=== PATIENT | male | born 1980 | race Caucasian/White ===

== ENCOUNTER 2016-09-11 12:56 | Inpatient (IN) | payer OTHER ==
[~2016-09-11] VITALS: Ht 185.4 cm; Wt 94.3 kg
--- NOTE | 2016-09-11 12:56 | NUR ---
BBRA FROM [facility], PER PT, "I FEEL ANXIOUS", ALERT, DELAYED RESPONSE. PLACED ON MONITOR. AWAITING MD ORDER.
--- NOTE | 2016-09-11 12:58 | NUR ---
DR VIERA AT BEDSIDE FOR EVAL
[2016-09-11] MEDS ORDERED: IV NS 0.9% 250 ML IV ONE (13:03)
[2016-09-11] MEDS ORDERED: CT SWABBABLE VALVE TRANS SET 1 EA INFUS.SET MC ONE (13:03)
[2016-09-11] MEDS ORDERED: IOHEXOL-350 100 ML VIAL IV ONE (13:04)
--- NOTE | 2016-09-11 13:04 | NUR ---
called code stroke
--- NOTE | 2016-09-11 13:04 | NUR ---
CALLED [facility] TELE STROKE LINE. EXPECTING CALL BACK FROM DR MOREAU
--- NOTE | 2016-09-11 13:08 | NUR ---
RAC #20 IV ACCESS. BLOOD SAMPLE COLLECTED SENT TO LAB
--- NOTE | 2016-09-11 13:09 | NUR ---
DR MOREAU CALLED, TRANSFERRED CALL TO DR VIERA
--- NOTE | 2016-09-11 13:09 | NUR ---
PATIENT TAKEN TO CT VIA STRETCHER
[2016-09-11 13:12] LABS: BASOPHILS # (AUTO) 0.1 /CMM (0.0-0.2); BASOPHILS % (AUTO) 0.8 % (0.0-2.0); EOSINOPHILS # (AUTO) 0.3 /CMM (0.0-0.7); EOSINOPHILS % (AUTO) 3.8 % (0.0-6.0); HEMATOCRIT 51 % (39-51); HEMOGLOBIN 17.1 g/dL (13.5-17.5); LYMPHOCYTES # (AUTO) 2.3 /CMM (0.8-4.8); LYMPHOCYTES % (AUTO) 29.9 % (20.0-44.0); MEAN CORPUSCULAR HEMOGLOBIN 27 PG (26.0-33.0); MEAN CORPUSCULAR HGB CONC 33 g/dl (31.0-36.0); MEAN CORPUSCULAR VOLUME 80 fL (80-96); MONOCYTES # (AUTO) 0.8 /CMM (0.1-1.30); MONOCYTES % (AUTO) 10.4 % (2.0-12.0); NEUTROPHILS # (AUTO) 4.2 /CMM (1.8-8.9); NEUTROPHILS % (AUTO) 55.1 % (43.0-81.0); PLATELET COUNT (AUTO) 371 /CMM (150-450); RDW COEFFICIENT OF VARIATION 13.3 (11.5-15.0); RED BLOOD CELL COUNT(AUTO) 6.38 MIL/uL (4.5-6.0); WHITE BLOOD COUNT (AUTO) 7.7 K/uL (4.3-11.0)
--- NOTE | 2016-09-11 13:18 | NUR ---
PATIENT RETURN FROM CT
--- NOTE | 2016-09-11 13:19 | NUR ---
TELE NEUROLOGY ACTIVATED
[2016-09-11 13:22] LABS: CALCIUM, SERUM 9.4 mg/dL (8.5-10.1); CARBON DIOXIDE 23 mmol/L (21-32); CHLORIDE 102 mmol/L (98-107); CREATININE 1.1 mg/dL (0.6-1.3); GLUCOSE 105 mg/dL (74-106); POTASSIUM 3.4 mmol/L (3.5-5.1); SODIUM SERUM 138 mmol/L (136-145); UREA NITROGEN, BLOOD 18 mg/dL (7-18)
[2016-09-11] MEDS ORDERED: IV NS 0.9% 500 ML BAG IV ONE (13:30)
--- NOTE | 2016-09-11 13:30 | NUR ---
SURVEY RODMAN AT BEDSIDE
[2016-09-11 13:31] LABS: INR 0.98 (0.87-1.13); PROTHROMBIN TIME 10.5 SECS (9.5-12.7)
[2016-09-11 13:32] LABS: TROPONIN I < 0.017 ng/mL (0.00-0.056)
--- NOTE | 2016-09-11 13:44 | NUR ---
PAGED DR THRASHER FOR PANEL ADMISSION
--- NOTE | 2016-09-11 13:45 | NUR ---
CALLED NURSING GI TECH FOR PANEL ADMISSION
[2016-09-11] MEDS ORDERED: LOSA100T15 PO (13:47)
[2016-09-11] MEDS ORDERED: AMLO5TAB4 PO (13:47)
[2016-09-11] MEDS ORDERED: HYDROCODONE/APAP 5/325MG 1 EACH TABLET PO PRN ×2 (14:00→14:30)
[2016-09-11] MEDS ORDERED: ZOLPIDEM TARTRATE 5 MG TABLET PO PRN (14:00)
[2016-09-11] MEDS ORDERED: ONDANSETRON HCL/PF 4 MG/2 ML VIAL IVP PRN ×2 (14:00→14:30)
[2016-09-11] MEDS ORDERED: ASPIRIN 325 MG TABLET PO ONE (14:00)
[2016-09-11] MEDS ORDERED: MAGNESIUM HYDROXIDE 30 ML UDC PO PRN ×2 (14:00→14:30)
[2016-09-11] MEDS ORDERED: Z GUARD REMEDY 2 OZ OINT TP PRN ×2 (14:00→14:30)
[2016-09-11] MEDS ORDERED: MAG HYDROX/AL HYDROX/SIMETH 30 ML UDC PO PRN ×2 (14:00→14:30)
[2016-09-11] MEDS ORDERED: ACETAMINOPHEN 325 MG TABLET PO PRN ×2 (14:00→14:30)
[2016-09-11] MEDS ORDERED: ENOXAPARIN SODIUM 40 MG/0.4 ML DISP.SYRIN SQ SCH (14:00)
[2016-09-11] MEDS ORDERED: ASPIRIN 325 MG TABLET ONE (14:08)
--- NOTE | 2016-09-11 14:14 | NUR ---
GAVE REPORT TO MENDY DILLARD ADMITTING DX PHYLLIS THRASHER TRANSFER VIA ACLS PROTOCOL. ROOM 119-2
[2016-09-11 14:30] VITALS: BP 128/89
--- NOTE | 2016-09-11 14:30 | NUR ---
singing telegram performerinternational logistics analyst notes Admitted a 36 years old male patient from ER who came in with the diagnosis of TIA. Accompanied by and ER nurse via gurney. No complaint of pain or discomfort noted, nor chest pain. On room air and tolerated well. Alert and oriented x 4, verbally responsive and able to make needs known. Stroke education rendered. On tele monitor SR heart rate of 97. Ambulatory skin intact. Informed Dr. Bae regarding admission and admission orders and diet and made aware. [place] offered. Kept patient clean and comfortable in bed, call light with in patient reach, will continue to monitor accordingly.
[2016-09-11] MEDS: ENOXAPARIN SODIUM 40 MG/0.4 ML DISP.SYRIN SQ SCH (15:25)
[2016-09-11] MEDS: LOSARTAN POTASSIUM 50 MG TABLET PO SCH (15:28)
[2016-09-11 16:00] VITALS: BP 128/89
--- NOTE | 2016-09-11 19:10 | NUR ---
telemetry technician closing notes All needs provided, attended, and anticipated. kept patient clean and comfortable in bed, call light with in patient reach. Endorsed to next fit Rn to continue care. SR on tele monitor heart rate of 90.
--- NOTE | 2016-09-11 19:41 | NUR ---
CLINICAL TRIAL SPECIALIST OPENING NOTE PT RECEIVED IN NO ACUTE DISTRESS. IS AT BEDSIDE AND STATED "HE WILL NOT TELL YOU THIS BUT LATER HE WILL NOT BE ABLE TO SLEEP BECAUSE HE IS IN A HOSPITAL". A/O X4. PT IS ON RA WITH 02 SATURATION WNL. BREATHING PATTERN IS NORMAL WITH ADEQUATE CHEST RISE/FALL. ON TELE WITH SR AT 81. SKIN IS INTACT. TOLD PT TO LET NEEDS BE KNOWN AND WILL CONTINUE TO MONITOR FOR ANY ACUTE CHANGES.
[2016-09-11 20:00] VITALS: BP_SYST 128; BP_SYST 138; BP_DIAS 68; BP_DIAS 94
[2016-09-11] MEDS: ZOLPIDEM TARTRATE 5 MG TABLET PO PRN (22:43)
--- NOTE | 2016-09-11 23:16 | NUR ---
RN NOTE PT REQUESTED TO HAVE LUIS. GIVEN AT 9100. WILL CONTINUE TO MONITOR.
[2016-09-12] VITALS (7 sets, daily range): BP systolic 116–140; BP diastolic 79–92
--- NOTE | 2016-09-12 06:22 | NUR ---
CORPORATE FITNESS PROGRAM COORDINATOR CLOSING NOTE PT REMAINS IN NO ACUTE DISTRESS. HAS BEEN SLEEPING 5-7 HOURS WITH NO ISSUES AFTER RECEIVING AMBIEN. ON RA WITH ADEQUATE CHEST RISE/FALL. NO C/O PAIN, DIZZINESS, OR NUMBNESS DURING THE SHIFT. PT IS CLEAN AND COMFORTABLE IN BED AND SAFETY/COMFORT MEASURES HAVE BEEN ENSURED. WILL ENDORSE CARE TO AM NURSE.
[2016-09-12] MEDS ORDERED: PANTOPRAZOLE 40 MG TABLET.DR PO SCH (07:30)
--- NOTE | 2016-09-12 07:35 | NUR ---
TELE INITIAL RN NOTE PT RECEIVED IN NO ACUTE DISTRESS. PT PRESENTS A/O X4. PT IS ON RA WITH 02 SATURATION WNL. NO SLURRED SPEECH OR FACIAL DROPPING NOTED NO SOB NOTED. ON TELE WITH SR AT 86. SKIN IS INTACT. PT LETS NEEDS KNOWN AND RN WILL CONTINUE TO MONITOR FOR ANY ACUTE CHANGES.
[2016-09-12] MEDS: PANTOPRAZOLE 40 MG TABLET.DR PO SCH (08:33)
[2016-09-12] MEDS: LOSARTAN POTASSIUM 50 MG TABLET PO SCH (08:34)
[2016-09-12] MEDS: AMLODIPINE BESYLATE 5 MG TABLET PO SCH (08:34)
[2016-09-12] MEDS ORDERED: ASPIRIN 325 MG TABLET PO SCH ×2 (09:00)
[2016-09-12] MEDS ORDERED: AMLODIPINE BESYLATE 5 MG TABLET PO SCH (09:00)
[2016-09-12 10:33] LABS: CHOLESTEROL 161 mg/dL (<200); HDL CHOLESTEROL 31 mg/dL (40-60); LDL 114 mg/dL (0-99); TRIGLYCERIDES 109 mg/dL (30-150)
[2016-09-12 10:46] LABS: THYROID STIMULATING HORMONE 1.726 uIU/mL (0.358-3.74)
--- NOTE | 2016-09-12 10:54 | NUR ---
RN NOTE PATIENT TAKEN FOR MRI- PATIENT STARTED HAVING ANXIETY ATTACK PER MRI TECHNICIANS - PATIENT AND FAMILY REQUESTING ANXIETY MEDICATION PRIOR TO THE PROCEDURE. MD CONTACTED FOR ORDERS. ORDER ATIVAN 1 MG IV X1 DOSE
[2016-09-12] MEDS ORDERED: LORAZEPAM INJ 2 MG/ML VIAL IV ONE (11:00)
[2016-09-12 11:03] LABS: ALBUMIN 3.6 g/dL (3.4-5.0); BILIRUBIN,DIRECT 0.1 mg/dL (0.0-0.2); BILIRUBIN,TOTAL 0.9 mg/dL (0.2-1.0); PHOSPHORUS 2.1 mg/dL (2.5-4.9); TOTAL PROTEIN, SERUM 7.3 g/dL (6.4-8.2)
[2016-09-12] MEDS ORDERED: GADOVERSETAMIDE 5 MMOL/10 ML VIAL IJ ONE (13:06)
[2016-09-12] MEDS ORDERED: K PHOS NEUTRAL 250 MG TABLET PO ONE (14:30)
--- NOTE | 2016-09-12 15:46 | NUR ---
RN note Late medication administration due to technical difficult with [employer] machine . RN contacted pharmacy and was told to contact [employer] technicians to fix the issue.
[2016-09-12 19:14] LABS: APPEARANCE,URINE CLEAR (CLEAR); BILIRUBIN,URINE NEGATIVE (NEGATIVE); BLOOD, URINE 2+ Ery/uL (NEGATIVE); COLOR,URINE YELLOW (YELLOW); KETONES,URINE NEGATIVE (NEGATIVE); LEUKOCYTE ESTERASE ,URINE NEGATIVE (NEGATIVE); NITRITE, URINE NEGATIVE (NEGATIVE); PROTEIN,URINE TRACE mg/dl (NEGATIVE); UGLUCOSE NEGATIVE (NEGATIVE); UROBILINOGEN,URINE 0.2 EU/dL (0.2)
--- NOTE | 2016-09-12 19:20 | NUR ---
BELT BUILDER INITIAL NOTE PT RECEIVED IN NO ACUTE DISTRESS. IS AT BEDSIDE WITH OTHER GUESTS. A/O X4. PT IS ON RA WITH 02 SATURATION WNL. BREATHING PATTERN IS NORMAL WITH ADEQUATE CHEST RISE/FALL. ON TELE WITH ST AT 110. SKIN IS INTACT. TOLD PT TO LET NEEDS BE KNOWN AND WILL CONTINUE TO MONITOR FOR ANY ACUTE CHANGES.
[2016-09-12 19:21] LABS: BACTERIA,URINE None seen /HPF (None Seen); SQUAMOUS EPITHELIAL CELL,UR Rare /HPF (None Seen)
--- NOTE | 2016-09-12 20:33 | NUR ---
DIRECTOR OF ENTERPRISE APPLICATIONS CLOSING NOTE PT REMAINS IN NO ACUTE DISTRESS. ON RA WITH NO SOB NOTED NO C/O PAIN, DIZZINESS, OR NUMBNESS DURING THE SHIFT. PT IS CLEAN AND COMFORTABLE IN BED AND SAFETY/COMFORT MEASURES HAVE BEEN ENSURED. WILL ENDORSE CARE TO PM NURSE.
[2016-09-12] MEDS: ENOXAPARIN SODIUM 40 MG/0.4 ML DISP.SYRIN SQ SCH (21:28)
[2016-09-12] MEDS ORDERED: ATORVASTATIN 10 MG TABLET PO SCH (22:00)
[2016-09-12] MEDS: ZOLPIDEM TARTRATE 5 MG TABLET PO PRN (23:41)
[2016-09-13] VITALS: BP 109/70
[2016-09-13 04:00] VITALS: BP_SYST 121; BP_SYST 125; BP_DIAS 68; BP_DIAS 91
--- NOTE | 2016-09-13 06:29 | NUR ---
SEWING MACHINE ASSEMBLER CLOSING NOTE PT REMAINS IN NO ACUTE DISTRESS. HAS BEEN SLEEPING 5-7 HOURS WITH NO ISSUES AFTER RECEIVING AMBIEN. ON RA WITH ADEQUATE CHEST RISE/FALL. IV ON RAC IS PATENT CLEAN AND DRY. PT HAS BRP AND WENT 3/4 TIMES. NO C/O PAIN, DIZZINESS, OR NUMBNESS DURING THE SHIFT. PT IS CLEAN AND COMFORTABLE IN BED AND SAFETY/COMFORT MEASURES HAVE BEEN ENSURED. WILL ENDORSE CARE TO AM NURSE.
[2016-09-13 08:00] VITALS: BP 124/80
--- NOTE | 2016-09-13 08:01 | NUR ---
TELE INITIAL RN NOTE PT RECEIVED IN NO ACUTE DISTRESS. PT PRESENTS A/O X4. PT IS ON RA WITH 02 SATURATION WNL. NO SLURRED SPEECH OR FACIAL DROPPING NOTED NO SOB NOTED. ON TELE WITH SR AT 78. SKIN IS INTACT. PT LETS NEEDS KNOWN AND RN WILL CONTINUE TO MONITOR FOR ANY ACUTE CHANGES.
[2016-09-13] MEDS: LOSARTAN POTASSIUM 50 MG TABLET PO SCH (08:32)
[2016-09-13] MEDS: PANTOPRAZOLE 40 MG TABLET.DR PO SCH (08:32)
[2016-09-13] MEDS: AMLODIPINE BESYLATE 5 MG TABLET PO SCH (08:33)
[2016-09-13] MEDS ORDERED: ASPIRIN EC 81 MG TABLET.DR PO SCH ×2 (09:00)
[2016-09-13] MEDS ORDERED: ASPI-991 PO (11:24)
[2016-09-13 12:00] VITALS: BP 124/79
--- NOTE | 2016-09-13 13:00 | NUR ---
car sales representative note patient discharge information reviewed and given to patient and , stroke prevention and teaching provided new orders renewed . Two copies of medical records given to patient per patient request to give 2nd report to pcp, pt has a scheduled f/u in the am 09/14/16 . pt stable iv remove , no complaint from patient or family . charge nurse notified
[2016-09-14 11:12] LABS: *DILUTE PROTHROMBIN TIME (dPT) 51.5 sec (0.0-55.0); *PTT-LA 44.3 sec (0.0-51.9); *THROMBIN TIME 19.7 sec (0.0-23.0); *dPT CONFIRM RATIO 1.15 Ratio (0.00-1.40); *dRVVT 47.4 sec (0.0-47.0); PROTEIN C ACTIVITY 126 % (73-180); PROTEIN S ACTIVITY 124 % (63-140)
[2016-09-14 13:11] LABS: *CARD ANTI-CARDIOLIPIN AB IgA 18 APL U/mL (0-11); *CARD ANTI-CARDIOLIPIN AB IgG <9 GPL U/mL (0-14); *CARD ANTI-CARDIOLIPIN AB IgM <9 MPL U/mL (0-12)
[2016-09-15 05:10] LABS: *INTERPRETATION Comment: (.); *dRVVT MIX 41.7 sec (0.0-47.0)
[2016-09-22 17:09] LABS: *FACTOR II, DNA ANALYSIS Negative (.)
== END 2016-09-13 12:30 | disposition home or self-care (01) | DRG 69 ==
LOC: ER 13:00 → TELE1 14:34
PROVIDERS: ADMIT Internal Medicine; ATTEND Internal Medicine
DX: G45.9 Transient cerebral ischemic attack, unspecified (principal); I10 Essential (primary) hypertension; E87.6 Hypokalemia; F41.9 Anxiety disorder, unspecified; Z79.899 Other long term (current) drug therapy; Z82.49 Family history of ischemic heart disease and other diseases of the circulatory system; Z83.3 Family history of diabetes mellitus
CPT/HCPCS: 36415; 70496-TC; 70498-TC; 70553-TC; 71010-TC; 80048-TC; 80061-TC; 80076-TC; 80305; 81000-TC; 81240; 81241; 82140-TC; 83735-TC; 83880; 84100-TC; 84443-TC; 84484-TC; 85025-TC; 85303; 85613; 85670; 85705; 85730-TC; 85732; 86147; 86592; 93307-TC; 97001-TC; A4606; A9579; J1650; J2060; J7040; J7050; Q9967; Z7610